=== PATIENT | male | born 2000 | race Caucasian/White ===

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

== ENCOUNTER 2021-11-26 12:18 | Emergency (ER) | payer OTHER ==
[2021-11-26] MEDS ORDERED: Ketorolac Tromethamine 30 MG/ML VIAL ONE (14:15)
== END 2021-11-26 15:03 | disposition home or self-care (01) ==
LOC: ERS 12:18
DX: S50.02XA Contusion of left elbow, initial encounter (principal); V00.131A Fall from skateboard, initial encounter
CPT/HCPCS: 96372; J1885